=== PATIENT | female | born 1970 | race Two or more races ===

== ENCOUNTER 2025-05-07 23:35 | Emergency (ER) | payer OTHER ==
[~2025-05-07] VITALS: Ht 157.5 cm; Wt 66.7 kg
[2025-05-08] MEDS ORDERED: 0.9 % SODIUM CHLORIDE 1,000 ML IV STA (00:16)
[2025-05-08] MEDS ORDERED: ONDANSETRON HCL 2 MG/ML VIAL IV STA (00:16)
[2025-05-08] MEDS ORDERED: FAMOTIDINE/PF 20 MG/2 ML VIAL IV STA (00:17)
[2025-05-08] MEDS ORDERED: ONDANSETRON HCL 2 MG/ML VIAL ONE (00:36)
[2025-05-08] MEDS ORDERED: FAMOTIDINE/PF 20 MG/2 ML VIAL ONE (00:36)
[2025-05-08 01:32] LABS: BASO % 0.5 % (0.1-1.2); EOS # 0.02 (0.04-0.54); EOS % 0.2 % (0.7-7.0); LYMPH # 1.96 (1.18-3.74); LYMPH % 21.3 % (19.3-53.1); MEAN PLATELET VOLUME 11.20 fl (9.4-12.4); MONO # 0.89 (0.24-0.82); MONO % 9.7 % (4.7-12.5); NEUT # 6.26 (1.56-6.13); NEUT % 68.1 % (34.0-71.1); RED CELL DISTRIBUTION WIDTH 12.8 % (11.6-14.4)
[2025-05-08 01:40] LABS: INR 0.98
[2025-05-08 01:58] LABS: ALT/SGPT 22.0 U/L (12-78); AST/SGOT 31.0 U/L (15-37); BILIRUBIN TOTAL 0.37 mg/dL (0.3-1.2); BUN CREA RATIO 18.0 (7.0-25.0); CREATININE SERUM 1.31 mg/dL (0.55-1.02); GFR 42.47; GLOBULINA 3.6 G/DL (2.4-3.5); GLUCOSE FASTING 130.0 mg/dL (65-100); OSMOLALITY SERUM 287.0 MOSM/KG (275-295)
[2025-05-08 04:13] LABS: URINE APPEARANCE Clear; URINE BILIRRUBIN Negative (NEGATIVE); URINE BLOOD Negative; URINE COLOR Yellow; URINE GLUCOSE Negative (NEGATIVE); URINE KETONE Negative (NEGATIVE); URINE LEUKOCYTE Negative; URINE NITRATE Negative; URINE PROTEIN Negative (NEGATIVE); URINE UROBILINOGEN 0.2 E.U./dl
[2025-05-08 04:17] LABS: URINE BACTERIA 104.3 uL (0.0-1933); URINE EPITHELIAL CELLS 10.5 uL (0.0-38.8); URINE WBC 9.3 uL (0.0-23.2)
[2025-05-08 04:25] LABS: TYPE CELLS SQUAMOUS; URINE CAST 0.00 uL (0.0-1.40); URINE RBC 1.1 uL (0.0-20.8)
== END 2025-05-08 06:41 | disposition home or self-care (01) ==
LOC: ER 23:35
PROVIDERS: Physician Assistant Medical
DX: K59.00 Constipation, unspecified (principal); Z98.890 Other specified postprocedural states; E11.9 Type 2 diabetes mellitus without complications; I10 Essential (primary) hypertension; Z88.6 Allergy status to analgesic agent; Z88.0 Allergy status to penicillin